=== PATIENT | male | born 2000 | race Asian ===

== ENCOUNTER 2022-06-23 18:06 | Observation (INO) ==
--- NOTE | 2022-06-23 18:21 | ED Triage Note ---
Date of Service June 23, 2022 History of Present Illness This patient was briefly evaluated while in triage. An abbreviated physical exam was performed. This patient is a 21-year-old Male with no significant past medical history who presents to the ED for evaluation of high blood pressure at [facility]. Pt. does report headache and neck pain, prompting him to go to [facility]. Physical Exam VITALS: Vitals are noted on the nurse's note and reviewed by myself. GENERAL: This is a 21 year old male, in no acute distress, nondiaphoretic, well- developed well-nourished. SKIN: No obvious rashes, edema, erythema HEAD: Normocephalic atraumatic. EYES: Conjunctivae without injection, sclerae without icterus. NECK: No JVD. LUNGS: No retractions or accessory muscle use. MUSCULOSKELETAL: Normal gait. NEURO: Patient was alert and oriented to person place and time. No focal neurological deficits. Initial orders for labs and / or imaging were placed and patient was placed in the waiting area until a bed is available. Please see further documentation for the full ED course.
[2022-06-23 19:35] LABS: Basophils # (auto) 0.05 K/uL (0-0.2); Basophils % (auto) 0.4 %; Eosinophils # (auto) 0.07 K/uL (0-0.50); Eosinophils % (auto) 0.6 %; Hematocrit (blood only) 48.9 % (40.1-51.0); Hemoglobin 17.1 g/dl (14.0-18.0); Immature Granulocytes # (auto) 0.06 K/uL (0.00-0.02); Immature Granulocytes % (auto) 0.5 %; Lymphocytes # (auto) 2.71 K/uL (1.2-3.4); Mean Corpuscular Hemoglobin 32.3 pg (25.0-34.0); Mean Corpuscular Volume 92.3 fL (80.0-100.0); Mean Platelet Volume 9.4 fL (9.4-12.4); Monocytes # (auto) 1.16 K/uL (0.24-0.82); Monocytes % (auto) 9.8 %; Neutrophils # (auto) 7.75 K/uL (1.4-6.5); Neutrophils % (auto) 65.7 %; Platelet Count 169 K/uL (130-400); RDW Standard Deviation 41.1 fL (36.4-46.3)
[2022-06-23 19:58] LABS: Alanine Aminotransferase 24 U/L (7-52); Albumin Globulin Ratio 1.7 (0.9-2); Albumin Level 4.8 gm/dl (3.4-5.0); Alkaline Phosphatase 60 U/L (34-104); Anion Gap 9 (3-11); Aspartate Aminotransferase 18 U/L (13-39); BUN Creatinine Ratio 14.6 (10-20); Bilirubin,Total 1.3 mg/dl (0.2-1.0); Blood Urea Nitrogen 14 mg/dl (6-23); Calcium 9.8 mg/dl (8.5-10.1); Carbon Dioxide 31 mmol/L (21-32); Chloride 95 mmol/L (98-107); Est GFR (African American) 131.4 ml/min; Est GFR (Non-African American) 113.3 ml/min; Globulin 2.8 gm/dl (2.5-4.0); Glucose 96 mg/dl (70-99(Fasting)); Potassium 3.4 mmol/L (3.5-5.1); Sodium 135 mmol/L (136-145); Total Protein 7.6 gm/dl (6.0-8.3)
[2022-06-23 20:00] LABS: Troponin I High Sensitivity 9.8 pg/ml (0-20)
--- NOTE | 2022-06-23 20:25 | XRay Report ---
XR chest 1V portable CLINICAL HISTORY: Hypertension TECHNIQUE: Single frontal radiograph of the chest was obtained. Comparison: None available at the time of this dictation. FINDINGS: No lines and tubes are seen. The cardiomediastinal silhouette is normal. The lungs are clear. No evid ence of pleural effusion or pneumothorax. IMPRESSION: No acute chest disease. ACT 112: Negative or not required by law. Electronically signed by: Tre Moffett M.D. 06/23/2022 8:24 PM
--- NOTE | 2022-06-23 20:37 | Emergency Department Note ---
Impression & Plan Hypertensive emergency ED Provider Note NAME: JULIOCESAR KEATING AGE: 21 SEX: M : 2000 ARRIVES VIA: Walk-In INFORMANT: Patient, ED PROVIDER(S): Layton Gonzalez MD Chief Complaint: High blood pressure HPI: Patient presents due to concern for high blood pressure. The patient states that he had gone to [employer] earlier today because he had some headache and thought that his blood sugar was low. No known history of diabetes. Patient [place] any chest pains or shortness of breath but has had generalized headache. No falls or trauma the patient has any numbness tingling or focal weakness. 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 The patient denies any substance use stimulants, drugs or tobacco. Patient denies any alcohol use. The patient does drink caffeine and believes he drinks about 250 mg daily. Patient denies any numbness tingling or focal weakness. Patient does admit to some increased stress as a finals week is close. ROS: See HPI for pertinent positives and negatives. A total of 10 systems were reviewed and otherwise negative. Past medical history: See below Surgical history: See below Social history: See below Physical Exam: GENERAL: NAD, wearing a mask, non-toxic. Wearing glasses. EYE EXAM: Normal conjunctiva. PERRL, no anisocoria and EOM's grossly intact w/o pain. NECK: Supple, no nuchal rigidity, no adenopathy, non-tender. No signs of meningismus. FROM of the neck with good chin to chest and neck extension. No stridor. LUNGS: Clear to auscultation. Normal chest wall mechanics. HEART: NSR, no MRG. ABDOMEN: Abdomen soft, non-tender, normo-active bowel sounds, no masses, no rebound or guarding. BACK: No CVA TTP. SKIN: No rashes and no bruising. UPPER EXTREMITIES: Upper extremities are grossly normal. LOWER EXTREMITIES: Grossly normal, no edema. NEURO EXAM: A&O x3, cranial nerves II-XII grossly intact, normal speech, moves all 4 extremities. Good [id number], no drift and no sensory deficits. Differential diagnoses: Benign hypertension, hypertensive emergency, cardiovascular pathology, toxicologic, pheochromocytoma, electrolyte abnormality, renal disease, endorgan damage, as well as other pathologies. Course: Patient was seen and evaluated the bedside. Full history physical exam was per formed. EKG interpreted by me Normal sinus rhythm, rate of 91 normal intervals left axis deviation, no ST elevations. No prior EKGs for comparison. Imaging Studies: See Below Cardiac monitoring: An order was placed for continuous cardiac monitoring. The monitor shows a rate of 88 with sinus rhythm. MDM: Patient was seen due to concern for high blood pressure. Blood work was obtained along with a CT of the head. Patient did have orders placed in triage. Patient was ordered a headache cocktail to see if this would improve his blood pressure. Patient's blood work is grossly unremarkable with negative imaging of the head and neck. Patient's blood pressure has not improved and was ordered IV hydralazine. I did speak with the on-call hospitalist Dr. Shah and the patient was admitted for hypertensive urgency/emergency as the patient had elevated BP and headache. Stat read imaging at the time of admission was negative. 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 Gimenez. Critical Care: I have personally spent 35 minutes of critical care time in direct management of this patient. This includes bedside care, interpretation of diagnostic studies, and testing, discussion with consultants, patient, and family members, and other require inpatient management activities. This 35 minutes is in excess of all separately billable procedures. Past Med/Surg History Medical History Hypertension Surgical History No pertinent past surgical history Social History Smoking Status: Never smoker Hx Alcohol Use: No Hx Substance Use: No Preferred Language: Wolof Communication Ability: Effective Current Living Situation: Alone current occupational status: student Feels Safe at Home: Yes Assistive Devices: None Allergies Allergies Allergy/AdvReac Type Severity Reaction Status Date / Time No Known Allergies Allergy Unverified 06/23/22 23:14 Home Meds Previous Rx's Medication Instructions Recorded aspirin 81 mg tablet,delayed 81 mg PO QAM 1 month #30 tabs 06/25/22 release carvedilol 25 mg tablet 25 mg PO BID 1 month #60 tabs 06/25/22 irbesartan 150 mg tablet 150 mg PO QAM 30 days #30 tabs 06/25/22 rosuvastatin 40 mg tablet 40 mg PO QAM 30 days #30 tabs 06/25/22 Results & Data (ED) Vital Signs Vital Signs - 24 hr 06/23/22 18:20 06/23/22 20:56 Temperature 36.9 C Temperature Source Temporal Artery Scan Pulse Rate 93 H Respiratory Rate 16 19 Respiratory Effort / Characteristics Non-Labored Spontaneous Respiratory Depth Normal Respiratory Pattern Regular Blood Pressure 203/152 H Blood Pressure Mean 169 Pulse Oximetry 97 Oxygen Delivery Method Room Air Sepsis Recent Fever Within 48 Hours No Sepsis New/Unexplained Change in Mental Status N/A Sepsis Action Taken by Nursing No Action Required Home Medications Current Medication List: was personally reviewed by me Laboratory Data Attestation: I reviewed the patient's lab results. Result diagrams: 06/25/22 05:58 06/25/22 05:58 Lab Results 06/23/22 06/23/22 06/23/22 Range/Units 19:27 19:27 22:12 WBC 11.80 H (4.8-10.8) K/ul RBC 5.30 (4.63-6.08) M/uL Hgb 17.1 (14.0-18.0) g/dl Hct 48.9 (40.1-51.0) % MCV 92.3 (80.0-100.0) fL MCH 32.3 (25.0-34.0) pg MCHC 35.0 (32.0-36.0) g/dL RDW Std Deviation 41.1 (36.4-46.3) fL RDW Coeff of Bc 12.0 (11.5-14.5) % Plt Count 169 (130-400) K/uL MPV 9.4 (9.4-12.4) fL Immature Gran % (Auto) 0.5 % Neut % (Auto) 65.7 % Lymph % (Auto) 23.0 % [place] % (Auto) 9.8 % Eos % (Auto) 0.6 % Baso % (Auto) 0.4 % Neut # (Auto) 7.75 H (1.4-6.5) K/uL Lymph # (Auto) 2.71 (1.2-3.4) K/uL Stan[place]aus # (Auto) 1.16 H (0.24-0.82) K/uL Eos # (Auto) 0.07 (0-0.50) K/uL Baso # (Auto) 0.05 (0-0.2) K/uL Immature Gran # (Auto) 0.06 H (0.00-0.02) K/uL Sodium 135 L (136-145) mmol/L Potassium 3.4 L (3.5-5.1) mmol/L Chloride 95 L (98-107) mmol/L Carbon Dioxide 31 (21-32) mmol/L Anion Gap 9 (3-11) BUN 14 (6-23) mg/dl Creatinine 0.96 (0.6-1.4) mg/dl Est Cr Clr Drug Dosing Not Reportable Est GFR ( Amer) 131.4 ml/min Est GFR (Non-Af Amer) 113.3 ml/min BUN/Creatinine Ratio 14.6 (10-20) Glucose 96 (70-99(Fasting)) mg/dl Calcium 9.8 (8.5-10.1) mg/dl Total Bilirubin 1.3 H (0.2-1.0) mg/dl AST 18 (13-39) U/L ALT 24 (7-52) U/L Alkaline Phosphatase 60 (34-104) U/L Troponin I High Sens 9.8 (0-20) pg/ml Total Protein 7.6 (6.0-8.3) gm/dl Albumin 4.8 (3.4-5.0) gm/dl Globulin 2.8 (2.5-4.0) gm/dl Albumin/Globulin Ratio 1.7 (0.9-2) SARS-CoV-2, RNA, NAAT NEGATIVE (NEGATIVE) Administered Medications Discontinued Medications Acetaminophen (Acetaminophen 500 Mg Tab) 1,000 mg PO NOW STA Stop: 06/23/22 20:58 Last Admin: 06/23/22 21:12 Dose: 1,000 mg Documented By: YUNIOR Amlodipine Besylate (Amlodipine Besylate 5 Mg Tab) 5 mg PO NOW ONE Stop: 06/23/22 23:58 Last Admin: 06/24/22 00:04 Dose: 5 mg Documented By: ANÍBAL Aspirin (Aspirin 81 Mg Ectab) 81 mg PO QAM DINO Stop: 07/25/22 11:29 Last Admin: 06/25/22 12:50 Dose: 81 mg Documented By: MAURA Carvedilol (Carvedilol 12.5 Mg Tab) 12.5 mg PO BID DINO Stop: 07/24/22 08:59 Last Admin: 06/25/22 07:27 Dose: 12.5 mg Documented By: Admin: 06/24/22 20:28 Dose: 12.5 mg Documented By: Admin: 06/24/22 06:14 Dose: 12.5 mg Documented By: DEBBIE Carvedilol (Carvedilol 12.5 Mg Tab) 12.5 mg PO NOW STA Stop: 06/25/22 08:42 Last Admin: 06/25/22 09:10 Dose: 12.5 mg Documented By: MAURA Diphenhydramine HCl (Diphenhydramine 50 Mg/Ml Vial) 12.5 mg IV NOW STA Stop: 06/23/22 20:58 Last Admin: 06/23/22 21:12 Dose: 12.5 mg Documented By: YUNIOR Hydralazine HCl (Hydralazine Hcl 20 Mg/Ml Vial) 10 mg IV NOW STA Stop: 06/23/22 22:01 Last Admin: 06/23/22 22:10 Dose: 10 mg Documented By: ANÍBAL Hydralazine HCl (Hydralazine Hcl 20 Mg/Ml Vial) 10 mg IV NOW STA Stop: 06/24/22 03:59 Last Admin: 06/24/22 04:16 Dose: 10 mg Documented By: DEBBIE Sodium Chloride (Nss) 500 mls @ 999 mls/hr IV .Q31M DINO Stop: 06/23/22 21:30 Last Infusion: 06/23/22 21:52 Dose: 0 mls/hr Documented By: Admin: 06/23/22 21:16 Dose: 999 mls/hr Documented By: YUNIOR Magnesium Sulfate/Dextrose (Magnesium Sulfate / D5w) 1 gm in 100 mls @ 100 mls/hr IV NOW ONE Stop: 06/23/22 21:56 Last Infusion: 06/23/22 22:11 Dose: 0 mls/hr Documented By: Admin: 06/23/22 21:12 Dose: 100 mls/hr Documented By: YUNIOR Ioversol (Optiray 320 500ml) 114 ml IV ONCE ONE Stop: 06/23/22 20:59 Last Admin: 06/23/22 20:59 Dose: 114 ml Documented By: ROSCOE Ioversol (Optiray 320 500ml) 120 ml IV ONCE ONE Stop: 06/25/22 10:00 Last Admin: 06/25/22 10:00 Dose: 120 ml Documented By: INNA Irbesartan (Irbesartan 75 Mg Tab) 75 mg PO QAM DINO Stop: 07/24/22 15:14 Last Admin: 06/25/22 07:28 Dose: 75 mg Documented By: Admin: 06/24/22 16:42 Dose: 75 mg Documented By: ANDREA Irbesartan (Irbesartan 75 Mg Tab) 75 mg PO ONCE ONE Stop: 06/25/22 11:17 Last Admin: 06/25/22 12:50 Dose: 75 mg Documented By: MAURA Labetalol HCl (Labetalol Hcl Iv 5 Mg/Ml 20ml) 10 mg IV NOW STA Stop: 06/23/22 23:38 Last Admin: 06/24/22 00:05 Dose: 10 mg Documented By: ANÍBAL Co-signed By: CANDELARIO Metoprolol Succinate (Metoprolol Succ 50mg Ext Rel Tab) 50 mg PO NOW STA Stop: 06/24/22 02:11 Last Admin: 06/24/22 02:35 Dose: 50 mg Documented By: ANÍBAL Metoprolol Tartrate (Metoprolol Tartrate 1 Mg/Ml Vial) 5 mg IV NOW STA Stop: 06/24/22 02:11 Last Admin: 06/24/22 02:18 Dose: 5 mg Documented By: ANÍBAL Metoprolol Tartrate (Metoprolol Tartrate 1 Mg/Ml Vial) Confirm Administered Dose 5 mg IV .STK-MED ONE Stop: 06/24/22 02:14 Last Admin: 06/24/22 02:14 Dose: Not Given Documented By: ANÍBAL Metoprolol Tartrate (Metoprolol Tartrate 1 Mg/Ml Vial) 5 mg IV NOW STA Stop: 06/24/22 02:56 Last Admin: 06/24/22 03:07 Dose: 5 mg Documented By: ANÍBAL Metoprolol Tartrate (Metoprolol Tartrate 1 Mg/Ml Vial) 5 mg IV NOW STA Stop: 06/24/22 03:58 Last Admin: 06/24/22 04:59 Dose: Not Given Documented By: DEBBIE Metoprolol Tartrate (Metoprolol Tartrate 1 Mg/Ml Vial) 5 mg IV NOW STA Stop: 06/24/22 05:06 Last Admin: 06/24/22 05:16 Dose: 5 mg Documented By: DEBBIE Potassium Chloride (Potassium Chloride Crtab 20 Meq Tabcr) 20 meq PO NOW STA Stop: 06/23/22 23:40 Last Admin: 06/24/22 00:00 Dose: 20 meq Documented By: ANÍBAL Potassium Chloride (Potassium Chloride Crtab 20 Meq Tabcr) 40 meq PO NOW STA Stop: 06/24/22 11:13 Last Admin: 06/24/22 12:06 Dose: 40 meq Documented By: ANDREA Potassium Chloride (Potassium Chloride Crtab 20 Meq Tabcr) 20 meq PO ONCE ONE Stop: 06/24/22 16:01 Last Admin: 06/24/22 16:42 Dose: 20 meq Documented By: ANDREA Potassium Chloride (Potassium Chloride Crtab 20 Meq Tabcr) 40 meq PO QAM [facility] Stop: 07/26/22 10:59 Last Admin: 06/25/22 07:28 Dose: 40 meq Documented By: MAURA Potassium Chloride (Potassium Chloride Crtab 20 Meq Tabcr) 40 meq PO BID [facility] Stop: 07/25/22 11:29 Last Admin: 06/25/22 12:51 Dose: 40 meq Documented By: MAURA Prochlorperazine (Prochlorperazine 5 Mg/Ml 2 Ml Vial) 10 mg IV NOW STA Stop: 06/23/22 20:58 Last Admin: 06/23/22 21:12 Dose: 10 mg Documented By: YUNIOR Rosuvastatin Calcium (Rosuvastatin Calcium 20 Mg Tab) 40 mg PO QAM [facility] Stop: 07/25/22 08:59 Last Admin: 06/25/22 07:27 Dose: 40 mg Documented By: MAURA Spironolactone (Spironolactone 25 Mg Tab) 50 mg PO NOW ONE Stop: 06/24/22 02:57 Last Admin: 06/24/22 04:15 Dose: 50 mg Documented By: DEBBIE Imaging Data Radiologist's Impression: Chest X-Ray 06/23/22 18:21 XR chest 1V portable CLINICAL HISTORY: Hypertension TECHNIQUE: Single frontal radiograph of the chest was obtained. Comparison: None available at the time of this dictation. FINDINGS: No lines and tubes are seen. The cardiomediastinal silhouette is normal. The lungs are clear. No evidence of pleural effusion or pneumothorax. IMPRESSION: No acute chest disease. ACT 112: Negative or not required by law. Electronically signed by: Tre Moffett M.D. 06/23/2022 8:24 PM Chest X-Ray 06/23/22 18:21 XR chest 1V portable CLINICAL HISTORY: Hypertension TECHNIQUE: Single frontal radiograph of the chest was obtained. Comparison: None available at the time of this dictation. FINDINGS: No lines and tubes are seen. The cardiomediastinal silhouette is normal. The lungs are clear. No evidence of pleural effusion or pneumothorax. IMPRESSION: No acute chest disease. ACT 112: Negative or not required by law. Electronically signed by: Tre Moffett M.D. 06/23/2022 8:[address] 06/23/22 18:21 CT head/brain wo con CLINICAL HISTORY: 21 years-old Male with Hypertension, headache. Acute hypertension with headache TECHNIQUE: Multiple axial CT images of the head were obtained without contrast. A dose lowering technique was utilized adhering to the principles of ALARA. COMPARISON: CTA head of same day FINDINGS: No acute intracranial hemorrhage, midline shift, intracranial mass, hydrocephalus, territorial ischemia or abnormal extra-axial collection. The calvarium is intact. The paranasal sinuses, mastoid air cells, and middle ear cavities are clear. IMPRESSION: No acute intracranial abnormality. ACT 112: Negative or not required by law. The above report was generated using voice recognition software. It may contain grammatical, syntax or spelling errors. Electronically signed by: Jalen Palma M.D. 06/24/2022 8:08 AM Head CTA 06/23/22 18:21 CT ANGIOGRAM OF THE BRAIN; CT ANGIOGRAM OF THE NECK CLINICAL HISTORY: Headache. Neck pain. Hypertension. COMPARISON STUDY: Unenhanced CT of the brain performed concurrently on 06/23/2022. TECHNIQUE: Following the IV administration of 114 of Optiray 320, CT angiogram of the head and neck was performed from the aortic arch to the vertex. Images are reviewed in the axial, sagittal, and coronal planes. 3-D MIPS images are created and assessed. IV contrast was administered without complication. All dolores surements were calculated based on NASCET criteria. A dose lowering technique was utilized adhering to the principles of ALARA. CT DOSE: 1120.22 mGy.cm FINDINGS: Brain parenchyma: The brain parenchyma is normal in appearance. There is no evidence of hemorrhage, mass effect, or acute territorial ischemia noting angiographic phase technique. There is no evidence of enhancing mass lesion on the angiogram phase images. The ventricles, sulci, and cisterns are normal in configuration. Garcia-white matter differentiation is preserved. No extra-axial fluid collection is seen. Thoracic aorta: Visualized portions of the thoracic aorta are normal in caliber. The aortic arch demonstrates standard 3-vessel anatomy. Right carotid arterial system: The right common carotid artery is widely patent, as are the right internal and external carotid arteries. Left carotid arterial system: The left common carotid artery is widely patent, as are the left internal and external carotid arteries. Vertebral arteries: The vertebral arteries are widely patent bilaterally and codominant. Subclavian arteries: Widely patent bilaterally. Intracranial vasculature: The internal carotid arteries are patent at the skull base, as are the anterior and middle cerebral arteries bilaterally. There is focal moderate to high-grade stenosis of the M1 segment of the right middle cerebral artery, best seen on axial image #96. There are small collaterals in this region this is likely chronic. No additional foci of stenosis are suggested. The vertebrobasilar system and posterior cerebral arteries are widely patent. The vertebral arteries are codominant. There is no aneurysm or focal vessel cut off seen throughout the intracranial circulation. Jugular veins: Patent bilaterally. Dural sinuses: Patent. Lung apices: Partially visualized upper lobe lung parenchyma appears clear. Soft tissues: The visualized pharyngeal soft tissues are normal in appearance noting angiographic phase technique. The oropharyngeal airway appears widely patent. The salivary and thyroid glands are normal in appearance. No cervical lymphadenopathy is seen. Skeletal structures: The calvarium appears intact. The cervical spine is within normal limits. Orbits: The bony orbits are intact. Orbital contents are normal as visualized. Sinuses and mastoids: The paranasal sinuses are clear. The mastoid air cells are well pneumatized. IMPRESSION: 1. There is no evidence of hemorrhage, mass effect, or acute territorial ischemia noting angiographic phase technique. 2. There is focal moderate to high-grade stenosis of the M1 segment of the right middle cerebral artery. Small collateral vessels are seen in this region and this is likely chronic. 3. Otherwise unremarkable CT angiogram of the brain. 4. Unremarkable CT angiogram of the neck. ACT 112: Negative or not required by law. Electronically signed by: Georges Gimenez M.D. 06/24/2022 8:10 AM Neck CTA 06/23/22 18:21 CT ANGIOGRAM OF THE BRAIN; CT ANGIOGRAM OF THE NECK CLINICAL HISTORY: Headache. Neck pain. Hypertension. COMPARISON STUDY: Unenhanced CT of the brain performed concurrently on 06/23/20. TECHNIQUE: Following the IV administration of 114 of Optiray 320, CT angiogram of the head and neck was performed from the aortic arch to the vertex. Images are reviewed in the axial, sagittal, and coronal planes. 3-D MIPS images are created and assessed. IV contrast was administered without complication. All measurements were calculated based on NASCET criteria. A dose lowering technique was utilized adhering to the principles of ALARA. CT DOSE: 1120.22 mGy.cm FINDINGS: Brain parenchyma: The brain parenchyma is normal in appearance. There is no evidence of hemorrhage, mass effect, or acute territorial ischemia noting angiographic phase technique. There is no evidence of enhancing mass lesion on the angiogram phase images. The ventricles, sulci, and cisterns are normal in configuration. Garcia-white matter differentiation is preserved. No extra-axial fluid collection is seen. Thoracic aorta: Visualized portions of the thoracic aorta are normal in caliber. The aortic arch demonstrates standard 3-vessel anatomy. Right carotid arterial system: The right common carotid artery is widely patent, as are the right internal and external carotid arteries. Left carotid arterial system: The left common carotid artery is widely patent, as are the left internal and external carotid arteries. Vertebral arteries: The vertebral arteries are widely patent bilaterally and codominant. Subclavian arteries: Widely patent bilaterally. Intracranial vasculature: The internal carotid arteries are patent at the skull base, as are the anterior and middle cerebral arteries bilaterally. There is focal moderate to high-grade stenosis of the M1 segment of the right middle cerebral artery, best seen on axial image #96. There are small collaterals in this region this is likely chronic. No additional foci of stenosis are suggested. The vertebrobasilar system and posterior cerebral arteries are widely patent. The vertebral arteries are codominant. There is no aneurysm or focal v essel cut off seen throughout the intracranial circulation. Jugular veins: Patent bilaterally. Dural sinuses: Patent. Lung apices: Partially visualized upper lobe lung parenchyma appears clear. Soft tissues: The visualized pharyngeal soft tissues are normal in appearance noting angiographic phase technique. The oropharyngeal airway appears widely patent. The salivary and thyroid glands are normal in appearance. No cervical lymphadenopathy is seen. Skeletal structures: The calvarium appears intact. The cervical spine is within normal limits. Orbits: The bony orbits are intact. Orbital contents are normal as visualized. Sinuses and mastoids: The paranasal sinuses are clear. The mastoid air cells are well pneumatized. IMPRESSION: 1. There is no evidence of hemorrhage, mass effect, or acute territorial ischemia noting angiographic phase technique. 2. There is focal moderate to high-grade stenosis of the M1 segment of the right middle cerebral artery. Small collateral vessels are seen in this region and this is likely chronic. 3. Otherwise unremarkable CT angiogram of the brain. 4. Unremarkable CT angiogram of the neck. ACT 112: Negative or not required by law. Electronically signed by: Georges Gimenez M.D. 06/24/2022 8:10 AM Discharge Plan Visit Data Chief Complaint: Referred by Doctor Stated Complaint: HIGH BLOOD PRESSURE ED Provider: Layton Gonzalez Discharge Problem: Hypertensive emergency Patient Disposition: Admitted As Inpatient Discharge Instructions Interventions: ED Discharge Assessment Last Done: 06/24/22 02:15
[2022-06-23] MEDS ORDERED: diphenhydrAMINE 50 MG/ML VIAL IV STA (20:57)
[2022-06-23] MEDS ORDERED: MAGNESIUM SULFATE / D5W 1 GM/100 ML BAG IV ONE (20:57)
[2022-06-23] MEDS ORDERED: PROCHLORPERAZINE 5 MG/ML 2 ML VIAL IV STA (20:57)
[2022-06-23] MEDS ORDERED: ACETAMINOPHEN 500 MG TAB PO STA (20:57)
[2022-06-23] MEDS ORDERED: OPTIRAY 320 500ml IV ONE (20:58)
[2022-06-23] MEDS ORDERED: SODIUM CHLORIDE 0.9% 500 ML IV SCH (21:00)
[2022-06-23] MEDS ORDERED: hydrALAZINE HCL 20 MG/ML VIAL IV STA (22:00)
--- NOTE | 2022-06-23 22:24 | History & Physical Report ---
Date of Service June 23, 2022 Assessment & Plan (1) Hypertensive emergency: Plan: 21 yo male with no significant PMHx presents with elevated BP. #Hypertensive Urgency -2 days of diffuse constant headache. Sent over by [facility] after having elevated BP in 200s systolically. Previously worked up for mild HTN last year, Echo and renal US were normal. Denies alcohol, drugs, tobacco use. Does drink ~200mg caffeine daily. Elevated stress due to upcoming finals. He was previously on chlorthalidone last year for his BP but stopped taking it. -Etiology unclear at this time. Consider hyperaldosteronism, pheochromocytoma, thyroid disease. -Systolic BP >200 with mild tachy otherwise vitals normal -WBC mildly elevated 11 with left shift -Na 135, K 3.4 -CXR: no acute disease -s/p 10mg IV hydralazine in ED. Will give additional IV labetalol 10mg. -Head CT, head/neck CTA pending; stat rad unremarkable -serum aldosterone and renin in am -trend cmp, cbc Hypokalemia -K 3.4, replenished with 20meq, monitor DVT ppx: SCDs FEN/GI: regular Code Status: full Dispo: med surg History of Present Illness Chief Complaint: elevated BP Primary Care Provider: NO PCP 21 yo male with no significant PMHx presents with elevated BP. 2 days ago started having a diffuse headache radiating to his posterior neck. He was unable to lift up his head at the time. He went to [facility] and was told to come to the ER due to high BP. Headache has been constant since. He is a student at [employer] and is currently studying for finals so has been a bit stressed lately. Not usually an anxious person. Eats 2 meals a day. Does not exercise much. Has about 200mg caffeine daily. Denies tobacco, recreational drugs, alcohol use. Denies p receeding illness. Denies vision changes, tinnitus, fevers, chills, fatigue, chest pain, palpitations, sob, abd pain, N/V/D, numbness/tingling/weakness of extremities. Of note, he was evaluated for high BP last year after having BP readings in 140s systolically. Echo and renal US were normal at that time. Allergies Allergy/AdvReac Type Severity Reaction Status Date / Time No Known Allergies Allergy Unverified 06/23/22 23:14 Home Medications Medication Instructions Recorded Confirmed Type No Known Home Medications 06/23/22 06/23/22 History Past Med/Surg History Medical History (Updated 06/23/22 @ 22:45 by Ivan Sepulveda DO) Hypertension Surgical History (Updated 06/23/22 @ 20:58 by Layton Gonzalez MD) No pertinent past surgical history Social History (Updated 06/23/22 @ 20:59 by Layton Gonzalez MD) Smoking Status: Never smoker Hx Alcohol Use: No Hx Substance Use: No Preferred Language: Cuban Communication Ability: Effective Current Living Situation: Alone current occupational status: student Feels Safe at Home: Yes Safety Concerns: Feels Safe At This Time Assistive Devices: None Review of Systems 2 Review of Systems: All systems reviewed & are unremarkable except as noted in HPI & below Physical Exam Physical Exam: Constitutional: Well-developed, well-nourished patient, in no acute distress, pleasant and normal affect, intact memory. Vitals as above. HEENT: No scleral injection or discharge.Moist mucous membranes. Clear oropharynx without erythema/exudate. Neck: Supple without lymphadenopathy or thyromegaly. Trachea midline. Lungs: Clear to auscultation bilaterally with good effort. Cardiac: Regular rate and rhythm.No murmurs. 2+ distal peripheral pulses. Abdomen: Bowel sounds present. Soft, nontender, and nondistended.No guarding or rebound tenderness. No hepatosplenomegaly. MSK: No cyanosis or clubbing. Extremities motor strength 5/5. Skin: No rashes, warm, dry. Neurologic: Grossly intact cranial nerves. PERRL. Psych: AOx3 Results & Data Results & Data ([facility]) Vital Signs (Past 12 Hours) Vital Signs Temp Pulse Pulse Resp BP BP Pulse Ox 06/23/22 22:20 98 H 20 98 06/23/22 22:00 81 18 204/157 H 96 06/23/22 22:00 213/158 H 06/23/22 21:30 90 18 214/159 H 100 06/23/22 21:22 100 H 17 214/153 H 100 06/23/22 21:06 93 H 19 204/139 H 99 06/23/22 20:56 19 06/23/22 18:20 36.9 C 93 H 16 203/152 H 97 O2 Del Method 06/23/22 22:20 Room Air 06/23/22 22:00 06/23/22 22:00 06/23/22 21:30 06/23/22 21:22 06/23/22 21:06 Room Air 06/23/22 20:56 06/23/22 18:20 Room Air Laboratory Results Laboratory Results WBC 11.80 K/ul (4.8-10.8) H 06/23/22 19: RBC 5.30 M/uL (4.63-6.08) 06/23/22 19: Hgb 17.1 g/dl (14.0-18.0) 06/23/22 19: Hct 48.9 % (40.1-51.0) 06/23/22 19: MCV 92.3 fL (80.0-100.0) 06/23/22 19: MCH 32.3 pg (25.0-34.0) 06/23/22 19: MCHC 35.0 g/dL (32.0-36.0) 06/23/22 19: RDW Std Deviation 41.1 fL (36.4-46.3) 06/23/22 19: RDW Coeff of Bc 12.0 % (11.5-14.5) 06/23/22 19: Plt Count 169 K/uL (130-400) 06/23/22 19: MPV 9.4 fL (9.4-12.4) 06/23/22 19: Immature Gran % (Auto) 0.5 % 06/23/22: Neut % (Auto) 65.7 % 06/23/22 19: Lymph % (Auto) 23.0 % 06/23/22 19: [place] % (Auto) 9.8 % 06/23/22 19: Eos % (Auto) 0.6 % 06/23/22: Baso % (Auto) 0.4 % 06/23/22 19: Neut # (Auto) 7.75 K/uL (1.4-6.5) H 06/23/22 19:27 Lymph # (Auto) 2.71 K/uL (1.2-3.4) 06/23/22 19: [place] # (Auto) 1.16 K/uL (0.24-0.82) H 06/23/22 19:27 Eos # (Auto) 0.07 K/uL (0-0.50) 06/23/22 19: Baso # (Auto) 0.05 K/uL (0-0.2) 06/23/22 19: Immature Gran # (Auto) 0.06 K/uL (0.00-0.02) H 06/23/22 19: Sodium 135 mmol/L (136-145) L 06/23/22 19: Potassium 3.4 mmol/L (3.5-5.1) L 06/23/22 19: Chloride 95 mmol/L (98-107) L 06/23/22: Carbon Dioxide 31 mmol/L (21-32) 06/23/22: Anion Gap 9 (3-11) 06/23/22 19: BUN 14 mg/dl (6-23) 06/23/22: Creatinine 0.96 mg/dl (0.6-1.4) 06/23/22 19: Est Cr Clr Drug Dosing Not Reportable 06/23/22: Est GFR ( Amer) 131.4 ml/min 06/23/22: Est GFR (Non-Af Amer) 113.3 ml/min 06/23/22 19: BUN/Creatinine Ratio 14.6 (10-20) 06/23/22 19: Glucose 96 mg/dl (70-99(Fasting)) 06/23/22 19: Calcium 9.8 mg/dl (8.5-10.1) 06/23/22 19: Total Bilirubin 1.3 mg/dl (0.2-1.0) H 06/23/22 19: AST 18 U/L (13-39) 06/23/22 19: ALT 24 U/L (7-52) 06/23/22 19: Alkaline Phosphatase 60 U/L (34-104) 06/23/22 19: Troponin I High Sens 9.8 pg/ml (0-20) 06/23/22 19: Total Protein 7.6 gm/dl (6.0-8.3) 06/23/22 19:27 Albumin 4.8 gm/dl (3.4-5.0) 06/23/22 19:27 Globulin 2.8 gm/dl (2.5-4.0) 06/23/22 19:27 Albumin/Globulin Ratio 1.7 (0.9-2) 06/23/22 19:27 SARS-CoV-2, RNA, NAAT NEGATIVE (NEGATIVE) 06/23/22 22:12 Impressions Chest X-Ray 06/23/22 18:21 XR chest 1V portable CLINICAL HISTORY: Hypertension TECHNIQUE: Single frontal radiograph of the chest was obtained. Comparison: None available at the time of this dictation. FINDINGS: No lines and tubes are seen. The cardiomediastinal silhouette is normal. The lungs are clear. No evidence of pleural effusion or pneumothorax. IMPRESSION: No acute chest disease. ACT 112: Negative or not required by law. Electronically signed by: Tre Moffett M.D. 06/23/2022 8:24 PM Supervising Physician Co-Signing Physician Notes Attending addendum: I have physically seen this patient, have supervised the medical residents activities, and agree with the H&P unless as otherwise noted. Assessment and Plan: Hypertensive emergency- Blood pressure as high as 230s/150s Received doses of IV labetalol, IV Lopressor, oral Lopressor, or IV hydralazine and oral carvedilol. Ultimately with improvement in blood pressure to 150s/100s CT scan of head, CTA head and neck are read as negative by stat rad The patient will be admitted to telemetry for serial cardiac enzymes, serial EKG's, cardiac rhythm monitoring and a 2-D echocardiogram with Dopplers. Potassium 3.4, suggesting possible aldosteronism, and dosing of spironolactone 50 mg given after renin and aldosterone levels drawn If symptoms are persistent, 24 urine studies will be indicated for pheochromocytoma and carcinoid syndrome Urine drug screen ordered and pending at this time Remaining orders and notations as noted Resident Activity Tracking Resident Involvement: Resident Care Provided Care Provided: Adult Hospital Medicine
[2022-06-23] MEDS ORDERED: LABETALOL HCL IV 5 MG/ML 20ML IV STA (23:37)
[2022-06-23] MEDS ORDERED: POTASSIUM CHLORIDE CRTAB 20 MEQ TABCR PO STA (23:39)
[2022-06-23] MEDS ORDERED: amLODIPine BESYLATE 5 MG TAB PO ONE (23:57)
[2022-06-24] MEDS ORDERED: METOPROLOL SUCC 50MG EXT REL TAB PO STA (02:10)
[2022-06-24] MEDS ORDERED: METOPROLOL TARTRATE 1 MG/ML VIAL IV STA ×5 (02:10→05:06)
[2022-06-24] MEDS ORDERED: METOPROLOL TARTRATE 1 MG/ML VIAL IV ONE (02:13)
[2022-06-24] MEDS ORDERED: hydrALAZINE HCL 20 MG/ML VIAL IV PRN (02:14)
[2022-06-24] MEDS ORDERED: ONDANSETRON INJ 2 MG/ML 2 ML VIAL IV PRN (02:14)
[2022-06-24] MEDS ORDERED: ACETAMINOPHEN 500 MG TAB PO PRN (02:14)
[2022-06-24] MEDS ORDERED: SPIRONOLACTONE 25 MG TAB PO ONE (02:56)
[2022-06-24 03:25] LABS: Basophils # (auto) 0.05 K/uL (0-0.2); Basophils % (auto) 0.3 %; Eosinophils # (auto) 0.03 K/uL (0-0.50); Eosinophils % (auto) 0.2 %; Hematocrit (blood only) 48.1 % (40.1-51.0); Hemoglobin 17.2 g/dl (14.0-18.0); Immature Granulocytes # (auto) 0.08 K/uL (0.00-0.02); Immature Granulocytes % (auto) 0.5 %; Lymphocytes # (auto) 2.19 K/uL (1.2-3.4); Mean Corpuscular Hgb Conc 35.8 g/dL (32.0-36.0); Mean Corpuscular Volume 92.1 fL (80.0-100.0); Mean Platelet Volume 9.1 fL (9.4-12.4); Monocytes # (auto) 1.05 K/uL (0.24-0.82); Monocytes % (auto) 7.2 %; Neutrophils # (auto) 11.22 K/uL (1.4-6.5); Neutrophils % (auto) 76.8 %; Platelet Count 169 K/uL (130-400); RDW Coefficient of Variation 12.1 % (11.5-14.5); RDW Standard Deviation 41.1 fL (36.4-46.3); Red Blood Count 5.22 M/uL (4.63-6.08); White Blood Count 14.62 K/ul (4.8-10.8)
[2022-06-24 03:46] LABS: Albumin Globulin Ratio 1.7 (0.9-2); Albumin Level 4.8 gm/dl (3.4-5.0); BUN Creatinine Ratio 13.8 (10-20); Bilirubin,Total 1.3 mg/dl (0.2-1.0); Calcium 9.5 mg/dl (8.5-10.1); Creatinine Clr Calc Pharmacy 116.1 ml/min; Est GFR (Non-African American) 124.2 ml/min; Globulin 2.8 gm/dl (2.5-4.0); Magnesium 2.5 mg/dl (1.7-2.4); Potassium 3.3 mmol/L (3.5-5.1); Total Protein 7.6 gm/dl (6.0-8.3)
[2022-06-24] MEDS ORDERED: hydrALAZINE HCL 20 MG/ML VIAL IV STA (03:58)
[2022-06-24] MEDS: carvediloL 12.5 MG TAB PO SCH ×2 (06:14→20:28)
--- NOTE | 2022-06-24 06:48 | Hospitalist Progress Note ---
Date of Service June 24, 2022 Assessment & Plan (1) Hypertensive emergency: Plan: 21 yo male with no significant PMHx who presented with persistent headache x2 days, and admitted for management of resistant hypertensive urgency. Now receiving gradual antihypertensive therapy, per protocol. Secondary etiology work-up pending. Hypertensive Urgency -2 days of diffuse constant "pressure-like" headache. Sent over by [facility] after having elevated BP in 200s systolically. Previously worked up for mild HTN last year, Echo and renal US were normal. Denies alcohol, drugs, tobacco use. Does drink ~200mg caffeine daily. Elevated stress due to upcoming finals. He was previously on chlorthalidone last year for his BP but stopped taking it. -Systolic BP >200 with mild tachy otherwise vitals normal -WBC mildly elevated 11 with left shift -Na 135, K 3.4 -CXR: no acute disease -s/p 10mg IV hydralazine in ED. Will give additional IV labetalol 10mg. -Head CT, head/neck CTA both showed moderate to high-grade stenosis of the MCA at M1. Spoke with on-call radiologist, who noted extent of stenosis likely 70%. Given that the rest of arteries were patent, raising suspicion for vasospasm present during the obtaining of these images. * Serum aldosterone and renin still pending * Repeat CTA head, CTA neck to rule out vasospasm * TTE ordered * Started on Crestor 40 mg, irbesartan 75 mg daily added to Coreg 12.5 mg twice daily. * Daily cmp, cbc, magnesium, phosphorus Hypercholesterolemia, hypertriglyceridemia -Lipid profile ordered following CTA head and neck results suggesting high-grade stenosis: Total cholesterol 226, triglyceride 173. * Started on Crestor 40 mg * Consider starting aspirin 81 mg once vasospasm ruled out on repeat CTA head, CTA neck. Hypokalemia -K 3.4, replenished with 20meq on admission. Administered additional 60 mEq total over 2 divided doses today. * Trend BMP, magnesium, phosphorus DVT ppx: SCDs FEN/GI: regular Code Status: full Dispo: PCU Admission and Anticipated Discharge Date Admission Date: June 23, 2022 Supervising Physician Co-Signing Physician Notes I personally examined the patient and verified all chong points of history and exam, discussed case, and agree with decision making with Dr Spears Feeling better. Headache basically gone. Does note that when headache was at its worst, he had blurred vision. That has improved as well. Relates he has had hypertension for quite a while Vitals noted, in general he is awake and alert pleasant no distress. HEENT normocephalic atraumatic mucous membranes moist. Breathing unlabored no accessory muscle use good effort. Skin shows no rashes no pallor or icterus. Neuro without focal deficits. Hypertensive urgency/crisisendorgan damage being a cerebral edema type picture given headache and blurred visionthis is improved nicely. Graded/stepwise improvement in hypertension over the next 24 hours. Then likely safe/stable for outpatient management and close follow-up. Uncontrolled hypertensionmarked elevations despite his young age. Might all be essential hypertensionbut considering coarctation of aorta (by lateral blood pressure readings and repeat echo) hyperaldosteronismrenin/aldosterone levels pending, renal artery stenosisrenal artery Dopplers; other etiologies such as pheochromocytoma on the differentialbut would rather test stepwise for more common (albeit still rare) etiologies first rather than all at once. Stenosis of M1 segment of MCAmed management, secondary risk reduction. No strokelike deficits. Will want to facilitate outpatient neurovascular follow-up given his young age, although I doubt any interventions to be on med management will be warranted. Mild leukocytosisnonspecific, probably demargination. Follow. No indication for LP, especially given that he is feeling somewhat better. DVT prophylaxisambulation Otherwise as above Subjective No acute events overnight. This morning, patient reports significant improvement in his headache (3/10, down from 10/10 on admission). He denies blurry vision, focal weakness, dysarthria, confusion, amnesia, blindness, chest pain, nausea, vomiting, or shortness of breath. Review of Systems Review of Systems: All systems reviewed & are unremarkable except as noted in HPI & below Physical Exam Physical Exam: General: Well-appearing, alert, interactive, and in no acute distress. HEENT: Normocephalic, atraumatic. EOM intact. Good conjugate gaze. Nares patent. Moist mucosal membranes. Neck: Supple. No lymphadenopathy. Normal ROM. CV: Regular rate and rhythm. Normal S1 and S2. No murmurs gallops or rubs. Respiratory: Normal respiratory effort. Lungs clear to auscultation bilaterally. No crackles, rhonchi, or wheezes. Abdomen: Soft, nondistended abdomen. No bruits heard on auscultation. No tenderness to deep palpation. No guarding or rebound. Extremities: Capillary refill <2 sec. 2+ dp equal bilaterally. No pedal edema. Neuro: Alert and oriented x3. Skin: Clean, dry, and intact. No rashes, bruises, or erythema. Results & Data Results & Data ([facility]) Vital Signs (Past 12 Hours) Vital Signs Temp Pulse Pulse Resp BP BP Pulse Ox 06/24/22 06:43 164/106 H 06/24/22 06:19 167/94 H 06/24/22 05:58 176/108 H 06/24/22 05:32 165/100 H 06/24/22 04:54 178/107 H 06/24/22 04:38 84 162/113 H 06/24/22 03:39 36.7 C 87 18 182/128 H 97 06/24/22 03:07 81 158/112 H 06/24/22 02:48 82 157/113 H 06/24/22 02:28 75 17 189/133 H 95 06/24/22 02:19 37.1 C 80 15 189/133 H 96 06/24/22 02:19 06/24/22 02:18 84 199/135 H 06/24/22 02:05 80 18 199/135 H 96 06/24/22 01:00 90 15 177/126 H 96 06/24/22 00:07 84 21 95 06/24/22 00:07 191/133 H 06/24/22 00:00 99 H 19 97 06/24/22 00:00 189/135 H 06/23/22 23:35 88 15 96 06/23/22 23:35 192/136 H 06/23/22 23:34 95 H 19 06/23/22 23:17 96 H 18 96 06/23/22 23:17 216/137 H 06/23/22 23:00 96 H 17 97 06/23/22 23:00 202/138 H 06/23/22 22:30 95 H 15 98 06/23/22 22:30 204/141 H 06/23/22 22:19 88 17 99 06/23/22 22:19 208/148 H 06/23/22 23:00 110 H 19 202/138 H 97 06/23/22 22:20 98 H 20 98 12/07/22 22:00 81 18 204/157 H 96 06/23/22 22:00 213/158 H 06/23/22 21:30 90 18 214/159 H 100 06/23/22 21:22 100 H 17 214/153 H 100 06/23/22 21:06 93 H 19 204/139 H 99 06/23/22 20:56 19 Pulse Ox O2 Del Method O2 Del Method 06/24/22 06:43 06/24/22 06:19 06/24/22 05:58 06/24/22 05:32 06/24/22 04:54 06/24/22 04:38 06/24/22 03:39 Room Air 06/24/22 03:07 06/24/22 02:48 06/24/22 02:28 Room Air 06/24/22 02:19 Room Air 06/24/22 02:19 96 Room Air 06/24/22 02:18 06/24/22 02:05 Room Air 06/24/22 01:00 Room Air 06/24/22 00:07 06/24/22 00:07 06/24/22 00:00 06/24/22 00:00 06/23/22 23:35 06/23/22 23:35 06/23/22 23:34 06/23/22 23:17 06/23/22 23:17 06/23/22 23:00 06/23/22 23:00 06/23/22 22:30 06/23/22 22:30 06/23/22 22:19 06/23/22 22:19 06/23/22 23:00 Room Air 06/23/22 22:20 Room Air 06/23/22 22:00 06/23/22 22:00 06/23/22 21:30 06/23/22 21:22 06/23/22 21:06 Room Air 06/23/22 20:56 Resident Activity Tracking Resident Involvement: Resident Care Provided Care Provided: Adult Hospital Medicine
--- NOTE | 2022-06-24 08:10 | CT Scan Report ---
CT head/brain wo con CLINICAL HISTORY: 21 years-old Male with Hypertension, headache. Acute hypertension with headache TECHNIQUE: Multiple axial CT images of the head were obtained without contrast. A dose lowering tech nique was utilized adhering to the principles of ALARA. COMPARISON: CTA head of same day FINDINGS: No acute intracranial hemorrhage, midline shift, intracranial mass, hydrocephalus, territorial ischem ia or abnormal extra-axial collection. The calvarium is intact. The paranasal sinuses, mastoid air cells, and middle ear cavities are clear . IMPRESSION: No acute intracranial abnormality. ACT 112: Negative or not required by law. The above report was generated using voice recognition software. It may contain grammatical, syntax o r spelling errors. Electronically signed by: Jalen Palma M.D. 06/24/2022 8:08 AM
--- NOTE | 2022-06-24 08:11 | CT Scan Report ---
CT ANGIOGRAM OF THE BRAIN; CT ANGIOGRAM OF THE NECK CLINICAL HISTORY: Headache. Neck pain. Hypertension. COMPARISON STUDY: Unenhanced CT of the brain performed concurrently on 06/23/2022. TECHNIQUE: Following the IV administration of 114 of Optiray 320, CT angiogram of the head and neck w as performed from the aortic arch to the vertex. Images are reviewed in the axial, sagittal, and branden nal planes. 3-D MIPS images are created and assessed. IV contrast was administered without complicati on. All measurements were calculated based on NASCET criteria. A dose lowering technique was utilize d adhering to the principles of ALARA. CT DOSE: 1120.22 mGy.cm FINDINGS: Brain parenchyma: The brain parenchyma is normal in appearance. There is no evidence of hemorrhage, m ass effect, or acute territorial ischemia noting angiographic phase technique. There is no evidence o f enhancing mass lesion on the angiogram phase images. The ventricles, sulci, and cisterns are normal in configuration. Garcia-white matter differentiation is preserved. No extra-axial fluid collection is seen. Thoracic aorta: Visualized portions of the thoracic aorta are normal in caliber. The aortic arch demo nstrates standard 3-vessel anatomy. Right carotid arterial system: The right common carotid artery is widely patent, as are the right int ernal and external carotid arteries. Left carotid arterial system: The left common carotid artery is widely patent, as are the left international marketing executive al and external carotid arteries. Vertebral arteries: The vertebral arteries are widely patent bilaterally and codominant. Subclavian arteries: Widely patent bilaterally. Intracranial vasculature: The internal carotid arteries are patent at the skull base, as are the ante rior and middle cerebral arteries bilaterally. There is focal moderate to high-grade stenosis of the M1 segment of the right middle cerebral artery, best seen on axial image #96. There are small collate rals in this region this is likely chronic. No additional foci of stenosis are suggested. The vertebr obasilar system and posterior cerebral arteries are widely patent. The vertebral arteries are codomin ant. There is no aneurysm or focal vessel cut off seen throughout the intracranial circulation. Jugular veins: Patent bilaterally. Dural sinuses: Patent. Lung apices: Partially visualized upper lobe lung parenchyma appears clear. Soft tissues: The visualized pharyngeal soft tissues are normal in appearance noting angiographic pha se technique. The oropharyngeal airway appears widely patent. The salivary and thyroid glands are nor mal in appearance. No cervical lymphadenopathy is seen. Skeletal structures: The calvarium appears intact. The cervical spine is within normal limits. Orbits: The bony orbits are intact. Orbital contents are normal as visualized. Sinuses and mastoids: The paranasal sinuses are clear. The mastoid air cells are well pneumatized. IMPRESSION: 1. There is no evidence of hemorrhage, mass effect, or acute territorial ischemia noting angiographic phase technique. 2. There is focal moderate to high-grade stenosis of the M1 segment of the right middle cerebral hammad ry. Small collateral vessels are seen in this region and this is likely chronic. 3. Otherwise unremarkable CT angiogram of the brain. 4. Unremarkable CT angiogram of the neck. ACT 112: Negative or not required by law. Electronically signed by: Georges Gimenez M.D. 06/24/2022 8:10 AM
[2022-06-24 08:54] LABS: BUN Creatinine Ratio 14.8 (10-20); Calcium 9.4 mg/dl (8.5-10.1); Creatinine Clr Calc Pharmacy 124.7 ml/min; Est GFR (African American) 148.3 ml/min; Est GFR (Non-African American) 127.9 ml/min; Potassium 3.2 mmol/L (3.5-5.1)
[2022-06-24 09:31] LABS: Chol HDL Ratio 4.3 (0-5)
[2022-06-24 10:04] LABS: Appearance Urine Turbid (Clear); Bacteria Urine Automated Negative (Negative); Bilirubin Urine Negative (Negative); Blood Urine Negative (Negative); Color Urine Yellow; Glucose Urine UA Negative (Negative); Ketones Urine Trace (Negative); Leukocyte Esterase Urine Negative (Negative); Nitrite Urine Negative (Negative); RBC Urine Automated 0-4 /hpf (0-4); Specific Gravity Urine 1.029 (1.000-1.030); Urobilinogen Urine Negative (Negative); pH Urine 7.5 (4.5-7.5)
[2022-06-24 10:06] LABS: Protein Urine 2+ (Negative)
[2022-06-24 11:06] LABS: Amphetamines+Metham, Urine Neg (Neg); Barbiturates, Urine Neg (Neg); Benzodiazepine, Urine Neg (Neg); Cocaine, Urine Neg (Neg); MDMA (Ecstacy), Urine Neg (Neg); Methadone, Urine Neg (Neg); Opiate, Urine Neg (Neg); Phencyclidine, Urine Neg (Neg)
[2022-06-24] MEDS ORDERED: POTASSIUM CHLORIDE CRTAB 20 MEQ TABCR PO STA (11:12)
[2022-06-24 11:52] LABS: Estimated Average Glucose 100 mg/dl; Hemoglobin A1C 5.1 % (4.5-5.6)
[2022-06-24] MEDS ORDERED: POTASSIUM CHLORIDE CRTAB 20 MEQ TABCR PO ONE (16:00)
--- NOTE | 2022-06-24 16:29 | Billing Data ---
Date of Service June 24, 2022 Coding Level of Care Code 19832 Subseq Hosp Care Lvl 3
[2022-06-24] MEDS: IRBESARTAN 75 MG TAB PO SCH (16:42)
--- NOTE | 2022-06-24 23:12 | Billing Data ---
Date of Service June 24, 2022 Coding Level of Care Code INT OBSERVATION CARE 70M LVL 3
--- NOTE | 2022-06-25 05:55 | Electrocardiogram Report ---
Test Reason : Blood Pressure : / mmHG Vent. Rate : 091 BPM Atrial Rate : 091 BPM P-R Int : 176 ms QRS Dur : 094 ms QT Int : 374 ms P-R-T Axes : 068 -52 057 degrees QTc Int : 460 ms Normal sinus rhythm Possible Left atrial enlargement Left anterior fascicular block Abnormal ECG No previous ECGs available Confirmed by Ton Willard ([id number]) on 06/25/2022 5:54:22 AM Referred By: REFERRED SELF Confirmed By:Ton Willard
[2022-06-25 06:32] LABS: Basophils # (auto) 0.05 K/uL (0-0.2); Basophils % (auto) 0.4 %; Eosinophils % (auto) 0.9 %; Hematocrit (blood only) 46.7 % (40.1-51.0); Hemoglobin 16.2 g/dl (14.0-18.0); Immature Granulocytes % (auto) 0.9 %; Lymphocytes # (auto) 3.33 K/uL (1.2-3.4); Lymphocytes % (auto) 29.1 %; Mean Corpuscular Hemoglobin 32.4 pg (25.0-34.0); Mean Corpuscular Hgb Conc 34.7 g/dL (32.0-36.0); Mean Corpuscular Volume 93.4 fL (80.0-100.0); Mean Platelet Volume 9.4 fL (9.4-12.4); Monocytes # (auto) 1.17 K/uL (0.24-0.82); Monocytes % (auto) 10.2 %; Neutrophils # (auto) 6.68 K/uL (1.4-6.5); Neutrophils % (auto) 58.5 %; Platelet Count 167 K/uL (130-400); RDW Coefficient of Variation 12.5 % (11.5-14.5); RDW Standard Deviation 43.2 fL (36.4-46.3); White Blood Count 11.43 K/ul (4.8-10.8)
[2022-06-25 06:57] LABS: BUN Creatinine Ratio 16.7 (10-20); Calcium 9.4 mg/dl (8.5-10.1); Creatinine Clr Calc Pharmacy 92.9 ml/min; Est GFR (African American) 100.3 ml/min; Est GFR (Non-African American) 86.5 ml/min; Magnesium 2.5 mg/dl (1.7-2.4); Phosphorus 3.7 mg/dl (2.5-4.9); Potassium 3.5 mmol/L (3.5-5.1)
--- NOTE | 2022-06-25 07:04 | Hospitalist Progress Note ---
Date of Service June 25, 2022 Assessment & Plan (1) Hypertensive emergency: Plan: 21 yo male with no significant PMHx who presented with persistent headache x2 days, and admitted for management of resistant hypertensive urgency. Now receiving gradual antihypertensive therapy, per protocol. Secondary etiology work-up pending. Hypertensive Urgency -2 days of diffuse constant "pressure-like" headache. Sent over by [facility] after having elevated BP in 200s systolically. Previously worked up for mild HTN last year, Echo and renal US were normal. Denies alcohol, drugs, tobacco use. Does drink ~200mg caffeine daily. Elevated stress due to upcoming finals. He was previously on chlorthalidone last year for his BP but stopped taking it. -Systolic BP >200 with mild tachy otherwise vitals normal -WBC mildly elevated 11 with left shift -Na 135, K 3.4 -CXR: no acute disease -s/p 10mg IV hydralazine in ED. Will give additional IV labetalol 10mg. -Head CT, head/neck CTA both showed moderate to high-grade stenosis of the MCA at M1. On-call radiologist created degree of stenosis at approximately 70%. Given that the rest of arteries were patent, concern was raised that finding may have been secondary to temporary vasospasm. -Repeat CTA head, CTA neck showed same high-grade middle cerebral artery (M1) stenosis, suggesting initial stenosis finding a true finding vs as a result of episodic vasospasm. * Serum aldosterone and renin still pending; renal artery duplex also pending * TTE ordered * Started on Crestor 40 mg, irbesartan and Coreg increased to 150 mg daily, 25 mg twice daily respectively. Adding aspirin 81 mg daily * Daily cmp, cbc, magnesium, phosphorus Hypercholesterolemia/hypertriglyceridemia -Lipid profile ordered following CTA head and neck results suggesting high-grade stenosis: Total cholesterol 226, triglyceride 173. * Started on Crestor 40 mg * Consider starting aspirin 81 mg once vasospasm ruled out on repeat CTA head, CTA neck. Hypokalemia -K 3.4, replenished with 20meq on admission. Administered additional 60 mEq total over 2 divided doses today. * P.o. KCl 40 mg twice daily * Trend BMP, magnesium, phosphorus DVT ppx: SCDs FEN/GI: regular Code Status: full Dispo: MedSurg Admission and Anticipated Discharge Date Admission Date: June 23, 2022 Subjective No acute events overnight. This morning, patient asleep comfortably on arrival. He is easily arousable to voice. He reports he feels better overall. His headache is gone. He has no other acute complaints. Review of Systems Review of Systems: All systems reviewed & are unremarkable except as noted in HPI & below Physical Exam Physical Exam: General: No acute distress HEENT: PERRLA. Normal conjunctiva, anicteric sclera. Oropharynx normal. Respiratory: Normal respiratory effort, CTA BL. Cardiovascular: RRR without murmurs, gallops, or rubs. No edema. GI: Soft abdomen with normal bowel sounds heard on auscultation. Nontender x4 quadrants Neuro: Alert and oriented x3. Results & Data Results & Data ([facility]) Vital Signs (Past 12 Hours) Vital Signs Temp Pulse Pulse Resp BP Pulse Ox O2 Del Method 06/25/22 02:44 36.8 C 91 H 20 172/109 H 98 Room Air 06/25/22 02:07 93 H 06/24/22 23:25 36.8 C 87 20 168/111 H 96 Room Air 06/24/22 19:43 36.8 C 96 H 20 156/106 H 97 Room Air Resident Activity Tracking Resident Involvement: Resident Care Provided Care Provided: Adult Hospital Medicine
[2022-06-25] MEDS: carvediloL 12.5 MG TAB PO SCH (07:27)
[2022-06-25] MEDS: IRBESARTAN 75 MG TAB PO SCH (07:28)
[2022-06-25] MEDS ORDERED: carvediloL 12.5 MG TAB PO STA (08:41)
[2022-06-25] MEDS ORDERED: ASPIRIN 81 MG ECTAB PO SCH ×2 (09:00→11:30)
[2022-06-25] MEDS ORDERED: POTASSIUM CHLORIDE CRTAB 20 MEQ TABCR PO SCH ×2 (09:00→11:30)
[2022-06-25] MEDS ORDERED: ROSUVASTATIN CALCIUM 20 MG TAB PO SCH (09:00)
[2022-06-25] MEDS ORDERED: OPTIRAY 320 500ml IV ONE (09:59)
--- NOTE | 2022-06-25 10:35 | CT Scan Report ---
CT angio head w con CLINICAL HISTORY: 21 years-old Male with Rule out vasospasm scan Tuesday morning. Acute headache COMPARISON STUDY: CTA had 06/23/2022 TECHNIQUE: Following the IV administration of 120 cc of Optiray, CT angiogram of the brain was perfor med from the skull base to the vertex. Images are reviewed in the axial, sagittal, and coronal planes . 3-D MIPS images are created and assessed. IV contrast was administered without complication. All me asurements were obtained according to NASCET criteria. A dose lowering technique was utilized adherin g to the principles of ALARA. CT DOSE: 592.13 mGy.cm FINDINGS: CT ANGIOGRAM OF THE BRAIN: The imaged bilateral internal carotid arteries are patent. Focal moderate to high-grade stenosis invo lving the M1 segment right middle cerebral artery is unchanged along with adjacent collateral vessels . The bilateral anterior and middle cerebral arteries are otherwise unremarkable. The vertebrobasilar system and posterior cerebral arteries are widely patent. There is no aneurysm, high-grade stenosis, or proximal branch occlusion identified. Dural sinuses appear patent. IMPRESSION: 1. Stable exam from the study obtained 06/23/2022. Chronic appearing focal moderate to high-grade sten osis involving the M1 segment right middle cerebral artery with small adjacent collaterals. 2. Otherwise unremarkable CTA of the head. ACT 112: Negative or not required by law. The above report was generated using voice recognition software. It may contain grammatical, syntax o r spelling errors. Electronically signed by: Jalen Palma M.D. 06/25/2022 10:34 AM
[2022-06-25] MEDS ORDERED: IRBESARTAN 75 MG TAB PO ONE (11:16)
--- NOTE | 2022-06-25 11:29 | Ultrasound Report ---
US duplex renal artery CLINICAL HISTORY: marked, uncontrolled HTN - ?REENA TECHNIQUE: Real-time grayscale and color and spectral Doppler ultrasound imaging of the kidneys was p erformed. Comparison: None available at the time of this dictation. FINDINGS: Right kidney measures 11.0 cm. Left kidney measures 11.6 cm. RIGHT: Normal echogenicity with preserved corticomedullary differentiation. Normal cortical thickness. No hy dronephrosis. No convincing evidence of calculus or mass. Spectral analysis: Intrarenal resistive indices are normal. Waveforms are normal in appearance.. Renal artery patent wit h peak systolic velocity 49.8 cm/s proximally, 61.0 cm/s in the midportion, and 29.9 cm/s distally. R enal vein patent. LEFT: Normal echogenicity with preserved corticomedullary differentiation. Normal cortical thickness. No hy dronephrosis. No convincing evidence of calculus or mass. Spectral analysis: Intrarenal resistive indices are normal. Waveforms are normal in appearance. Renal artery patent with peak systolic velocity 3.8 cm/s proximally, 99.1 cm/s in the midportion, and 58.4 cm/s distally. Yaniv al vein patent. Abdominal aorta: Patent. Peak systolic velocity 105.7 cm/s. Bladder: Normal. Bilateral ureteral jets present. Reference ranges: Normal main renal artery peak systolic velocity less than 180 cm/s. Ratio of renal artery PSV to aort ic PSV less than 3.5 equates to normal or less than 60% stenosis. Only one of the two criteria listed needs to be met for diagnosis. IMPRESSION: No evidence of renal artery stenosis. ACT 112: Negative or not required by law. Electronically signed by: Tre Moffett M.D. 06/25/2022 11:27 AM
--- NOTE | 2022-06-25 15:40 | CT Scan Report ---
CT angio neck with con CLINICAL HISTORY: Rule out vasospasm TECHNIQUE: Contiguous axial CT images of the head were acquired from the base of the skull to the morales matthew without intravenous contrast administration. CT angiography of the head and neck was performed f ollowing intravenous administration of iodinated contrast. Coronal and sagittal MIPS were obtained fr om the axial data set and were submitted for review. Automated dose lowering techniques and/or adjus tment according to patient size were utilized for this examination. All measurements were calculated based on NASCET criteria. Comparison: Comparison is made to CTA neck 06/23/2022 FINDINGS: Lungs and soft tissues are unremarkable. CTA Neck: A 3 vessel aortic arch is shown. There is no significant atherosclerotic plaque in the aor tic arch or the origins of the innominate, left common carotid, and left subclavian arteries. The c ommon carotid, external carotid, cervical segments of the internal carotid arteries, and the cervical segments of the vertebral arteries are patent without hemodynamically significant stenosis. The left vertebral artery is dominant. IMPRESSION: No occlusion, hemodynamically significant stenosis, or dissection in the major cervical arteries. No evidence of vasospasm is seen. Assessment of stenosis of the internal carotid arteries is based on NASCET criteria. ACT 112: Negative or not required by law. Electronically signed by: Tre Moffett M.D. 06/25/2022 3:39 PM
--- NOTE | 2022-06-25 16:09 | XCELERA ---
[id number]
--- NOTE | 2022-06-25 17:14 | Discharge Summary ---
Date of Service June 25, 2022 Admission HPI Per Admitting Provider 21 yo male with no significant PMHx presents with elevated BP. 2 days ago started having a diffuse headache radiating to his posterior neck. He was unable to lift up his head at the time. He went to [facility] and was told to come to the ER due to high BP. Headache has been constant since. He is a student at [employer] and is currently studying for finals so has been a bit stressed lately. Not usually an anxious person. Eats 2 meals a day. Does not exercise much. Has about 200mg caffeine daily. Denies tobacco, recreational drugs, alcohol use. Denies preceeding illness. Denies vision changes, tinnitus, fevers, chills, fatigue, chest pain, palpitations, sob, abd pain, N/V/D, numbness/tingling/weakness of extremities. Of note, he was evaluated for high BP last year after having BP readings in 140s systolically. Echo and renal US were normal at that time. Admission Exam Per Admitting Provider General: Well-appearing, alert, interactive, and in no acute distress. HEENT: Normocephalic, atraumatic. EOM intact. Good conjugate gaze. Nares patent. Moist mucosal membranes. Neck: Supple. No lymphadenopathy. Normal ROM. CV: Regular rate and rhythm. Normal S1 and S2. No murmurs gallops or rubs. Respiratory: Normal respiratory effort. Lungs clear to auscultation bilaterally. No crackles, rhonchi, or wheezes. Abdomen: Soft, nondistended abdomen. No bruits heard on auscultation. No t enderness to deep palpation. No guarding or rebound. Extremities: Capillary refill <2 sec. 2+ dp equal bilaterally. No pedal edema. Neuro: Alert and oriented x3. Skin: Clean, dry, and intact. No rashes, bruises, or erythema. Principal Diagnosis Hypertensive urgency, high-grade right middle cerebral artery (M1) stenosis Discharge Exam General: No acute distress HEENT: PERRLA. Normal conjunctiva, anicteric sclera. Oropharynx normal. Respiratory: Normal respiratory effort, CTA BL. Cardiovascular: RRR without murmurs, gallops, or rubs. No edema. GI: Soft abdomen with normal bowel sounds heard on auscultation. Nontender x4 quadrants Neuro: Alert and oriented x3. Discharge Data Allergies Allergy/AdvReac Type Severity Reaction Status Date / Time No Known Allergies Allergy Unverified 06/23/22 23:14 Consultations 06/23/22 22:03 ED Decision to Admit Stat Ordered Studies 06/23/22 18:21 CT angio head w con Urgent CT angio neck with con Urgent CT head/brain wo con Urgent 06/25/22 US duplex renal artery Routine 06/25/22 17:55 CT angio head w con Routine CT angio neck with con Routine Hospital Course (1) Hypertensive emergency: 21 yo male with no significant PMHx who presented with persistent headache x2 days, and admitted for management of resistant hypertensive urgency. Now receiving gradual antihypertensive therapy, per protocol. Secondary etiology work-up pending. Hypertensive Urgency -2 days of diffuse constant "pressure-like" headache. Sent over by [facility] after having elevated BP in 200s systolically. Previously worked up for mild HTN last year, Echo and renal US were normal. Denies alcohol, drugs, tobacco use. Does drink ~200mg caffeine daily. Elevated stress due to upcoming finals. He was previously on chlorthalidone last year for his BP but stopped taking it. -Systolic BP >200 with mild tachy otherwise vitals normal -WBC mildly elevated 11 with left shift -Na 135, K 3.4 -CXR: no acute disease -s/p 10mg IV hydralazine in ED. Will give additional IV labetalol 10mg. -Head CT, head/neck CTA both showed moderate to high-grade stenosis of the MCA at M1. Spoke with on-call radiologist, who noted extent of stenosis likely 70%. Given that the rest of arteries were patent, suspicion was raised that findings were due to temporary, transient vasospasm that happened to occur during the obtaining of CTA. * Serum aldosterone and renin still pending * Repeat CTA head, CTA neck showed the same high-grade stenosis of the right middle cerebral artery, ruling out vasospasm. * TTE ordered * Started on Crestor 40 mg, irbesartan 75 mg daily added to Coreg 12.5 mg twice daily. Irbesartan increased to 150 mg daily, Coreg to 25 mg twice daily for optimal pressure control. * Aspirin 81 mg daily added to patient's regimen as well * Follow-up scheduled outpatient with [facility]. Hypercholesterolemia, hypertriglyceridemia -Lipid profile ordered following CTA head and neck results suggesting high-grade stenosis: Total cholesterol 226, triglyceride 173. * Started on Crestor 40 mg * Consider starting aspirin 81 mg once vasospasm ruled out on repeat CTA head, CTA neck. Hypokalemia -K 3.4, replenished with 20meq on admission. Administered additional 60 mEq total over 2 divided doses today. * Trend BMP, magnesium, phosphorus. Repleted potassium as indicated. (2) Hypercholesterolemia with hyperglyceridemia: (3) Stenosis of right middle cerebral artery not resulting in cerebral infarction: Total Time Total Time Spent Total Time Spent (In Minutes): <30 Discharge Plan Discharge Items Patient Disposition: Home - Self-Care Reason For Visit: HYPERTENSIVE URGENCY Discharge Diagnosis: Hypertensive crisis, middle cerebral artery stenosis Activity: Per Instructions section Non-emergency contact: Primary Care Provider Call non-emergency contact if: you have any medication questions, your symptoms worsen, your pain is not controlled and your pain is worsening Follow-up/Referrals: [facility] [Primary Care Provider] - ([facility]) Tami Spears MD [Resident] - 07/02/22 3:30 pm (follow up appointment: July 02, 2022 @ 3:30) Diet: Regular Addtl Attending Provider Instructions: Dear Kenzie, You came to the emergency room because of a severe headache that persisted for several days. You were then admitted to the hospital because you were found to be in hypertensive crisis, a condition where your blood pressure was severely elevated. You were treated with medicines to lower your blood pressure, were tested for labs, and then were admitted to the hospital. Once your pressure was lowered, we scanned your brain and neck to make sure you did not have a stroke. Our radiologists identified a narrowing of blood vessel in your brain, a branch (M1) of the middle cerebral artery. We repeated the scan to confirm the results. We also made some adjustments to the drugs to control your blood pressure some more. Once your blood pressure was under control, we felt that you are ready to be safely discharged home. Hypertensive urgency: We gave you some medicines to control your blood pressure. We are sending these medicines to your pharmacy to [facility]. Please take them as instructed unless otherwise instructed by your primary care physician: * Irbesartan (Avapro) 150 mg, to be taken once daily. * Carvedilol (Coreg) 25 mg, to be taken twice daily. Middle cerebral artery (M1) stenosis: We also gave you some medicine to prevent you from forming clots. We are sending this medicine to your pharmacy to [facility]. Please take as instructed: * Aspirin 81 mg, to be taken once daily. Hyperlipidemia: After discovering the stenosis in your brain artery, we tested your blood for the level of cholesterol. We discovered that you have an elevated level of cholesterol. Due to the increased risk that you are cerebral artery stenosis presents, you were given some medicines here, which we are sending to your pharmacy to [facility]. Please take as instructed: * Rosuvastatin (Crestor) 40 mg, to be taken once daily. Follow-up appointments A follow-up appointment has been made for you with Dr. Tami Spears at [facility] on June 29, 2022 at 3:25 PM. If you do not hear from the clinic in the next 3 to 5 days after your discharge, you may call the clinic at [phone]. It is important that you attend this follow-up appointment. Your doctor will need to monitor you to ensure that the medicines are working to control your blood pressure. If your blood pressure is still not controlled, your doctor will likely make further adjustments to your blood pressure regimen. It has been a pleasure to care for you here at [facility]. We wish you the best in your recovery. If you have any questions or concerns at all about your stay, you may contact the hospital at [phone]. Pending Studies at Discharge: No Stand-Alone Forms: My [facility], Smoking Cessation Medications and DC Order Prescriptions: New carvedilol 25 mg Tablet 25 mg PO BID 30 Days Qty: 60 0RF aspirin 81 mg Tablet,Delayed Release (Dr/Ec) 81 mg PO QAM 30 Days Qty: 30 0RF irbesartan 150 mg tablet 150 mg PO QAM 30 Days Qty: 30 0RF rosuvastatin 40 mg tablet 40 mg PO QAM 30 Days Qty: 30 0RF Discharge Orders: Discharge Order (Routine); Ordered 06/25/22 Ordered By: Tami Spears Admission Data Admit Date/Time: 06/23/22 23:21 Attending Provider: Martin Morris Admit Provider: Ivan Sepulveda Primary Care Provider: [facility] Other Providers: Jeremias Jade Other Interventions: Discharge Summary Assessment (RN) Last Done: 06/25/22 16:52 Supervising Physician Co-Signing Physician Notes I personally examined the patient and verified all chong points of history and exam, discussed case, and agree with decision making with Dr Spears Feeling better.headache gone. feels up to going home, willing to follow w resident physician as outpt next week. Vitals noted, in general he is awake and alert pleasant no distress. HEENT normocephalic atraumatic mucous membranes moist. Breathing unlabored no accessory muscle use good effort. Skin shows no rashes no pallor or icterus. Neuro without focal deficits. Hypertensive urgency/crisisendorgan damage being a cerebral edema type picture given headache and blurred visionthis is improved nicely. BP when when check 140/100 both arms Uncontrolled hypertensionmarked elevations despite his young age. Might all be essential hypertensionbut given his marked elevations, renin/aldosterone levels pending, renal artery ultrasound shows no evidence of renal artery stenosis, echo last year was reassuringrepeat this hospital stay showed bord terence concentric LVH, no significant change. Blood pressures equal both arms. Pressures improving, totally asymptomatic now. Safe/stable for home on carvedilol and irbesartan. Office follow-up in less than a week, basic metabolic panel next week. Stenosis of M1 segment of MCAmed management, secondary risk reduction. No strokelike deficits. Will want to facilitate outpatient neurovascular follow-up given his young age, although I doubt any interventions to be on med management will be warranted. Mild leukocytosisnonspecific, probably demargination. Improving. No indication for LP, given the leukocytosis improving and he is feeling better. DVT prophylaxisambulation Otherwise as above Resident Activity Tracking Resident Involvement: Resident Care Provided Care Provided: Adult Hospital Medicine
--- NOTE | 2022-06-25 19:29 | Billing Data ---
Date of Service June 25, 2022 Coding Level of Care Code D/C DAY MANAGEMENT <30 MINS
[2022-06-25] MEDS ORDERED: carvediloL 25 MG TAB PO SCH (21:00)
== END 2022-06-25 18:07 | disposition home or self-care (01) ==
LOC: ED 18:06 → EDINP 18:06 → SUATTDRO 23:21 → 2E 06-24 02:15